=== PATIENT | male | born 1985 | race Caucasian/White ===

== ENCOUNTER 2025-04-22 16:03 | Emergency (ER) | payer BC, SELFPAY ==
[2025-04-22 16:13] VITALS: BP 188/146
[2025-04-22 16:24] LABS: % Basophils 0.9 % (0-2); % Eosinophils 1.8 % (0-6); % Immature Granulocytes 0.3 % (0-0.5); % Lymphocytes 24.3 % (20.5-51.1); % Monocytes 9.7 % (1.7-9.3); Absolute Basophils 0.1 10^3/uL (0-0.2); Absolute Eosinophils 0.1 10^3/uL (0-0.7); Absolute Lymphocytes 1.7 10^3/uL (1.2-3.4); Absolute Monocytes 0.7 10^3/uL (0.1-0.6); Absolute Neutrophils 4.4 10^3/uL (1.4-6.5); Hematocrit 47.7 % (39.0-52.0); Hemoglobin 17.5 g/dL (13.0-18.0); Mean Corp Hgb Conc. 36.7 g/dL (33.0-37.0); Mean Corpuscular Hgb 32.9 pg (27.0-31.0); Mean Corpuscular Volume 89.7 fL (80.0-94.0); Mean Platelet Volume 8.9 fL (7.4-10.4); Nucleated Red Blood Cells % 0 % (-); Platelet Count 235 10^3/uL (130-400); Red Blood Cell Count 5.32 10^6/uL (4.70-6.10); Red Cell Dist. Width 11.2 % (11.5-14.5)
[2025-04-22 16:53] LABS: ALT (SGPT) 119 U/L (0-50); AST (SGOT) 37 U/L (17-59); Albumin 5.3 g/dl (3.5-5.0); Alkaline Phosphatase 64 U/L (38-126); Blood Urea Nitrogen 15 mg/dl (9-20); Calcium 10.7 mg/dl (8.4-10.2); Carbon Dioxide 28 mmol/L (22-30); Chloride 104 mmol/L (98-107); Glucose 111 mg/dl (70-99); Lipase 144 U/L (23-300); Sodium 143 mmol/L (135-145); Total Bilirubin 1.4 mg/dl (0.2-1.3); Total Protein 8.6 g/dl (6.3-8.2); eGFR > 60.00
--- NOTE | 2025-04-22 19:02 | ED.GENMED ---
History of Present Illness
General
Chief Complaint: Abdominal Symptoms
Source: patient
Exam Limitations: none
Time Seen by Provider: 04/22/25 18:08
Nursing documentation reviewed up to this point in time: agreed with
History of Present Illness
History of Present Illness:
The patient is a 40-year-old male presenting with intermittent abdominal pain, primarily experienced in the center of the abdomen/right upper abdomen. Over the last 7 to 10 days, the patient describes worsening symptoms including upper abdominal
discomfort and occasional nausea. The pain sometimes feels sharp, and he experiences bloating. He has noticed similar symptoms intermittently over the past year. He does feel like the symptoms are exacerbated by eating.
Prior to the most recent exacerbation, the patient consumed six alcoholic drinks with spicy food, which led to worsened symptoms, including dry heaving and a flushed sensation. He reports frequent bloating and states he has felt flushed without any
fever. Additionally, he experiences looser stools during flare-ups but no nausea or diarrhea was reported.
The patient mentions a history of blood pressure issues as he gets very nervous when his blood pressure is taken.
The patient reports no chest pain or respiratory symptoms. He denies any surgery or significant medical history.
He does report neglecting his health over the past two years after moving back from [place]. He plans to reduce his alcohol consumption as he is currently drinking about 30 drinks per week. His last drink was last .
Review of Systems
Review of Systems
Allergies reviewed?: Yes
All Other Systems: ROS reviewed and negative except as documented in HPI and ROS
Phy Exam
Physical Exam
Physical Exam:
Vitals: Hypertensive, otherwise vital signs stable. Afebrile
General: Patient is in no apparent distress.
Skin: Warm and dry, no rashes or lesions
Head: Normocephalic, atraumatic
Eyes: Sclera nonicteric.
Throat: Protecting airway
Neck: Normal ROM, no cervical spine tenderness, no meningismus
Cardiac: Regular rate and rhythm, no murmurs.
Pulm: Normal respiratory effort, no wheezes, rales, rhonchi heard on exam
.
Abdomen: Abdomen soft. No reproducible abdominal tenderness. Negative Mata sign. No tenderness McBurney's point
Extremities: No evidence of cyanosis or edema
Neuro: AAOx3. Grossly intact. No tremors.
Psychiatric: Normal affect.
Course
Orders/Labs/Results
Orders:
Orders
04/22/25 16:17
Complete Blood Count/With Diff Urgent
Comprehensive Metabolic Panel Urgent
Lipase Urgent
04/22/25 19:01
Mag Hydrox/Al Hydrox/Simeth [Maalox] 30 ml Phenobarb/Hyoscy/Atropine/Scop [] 10 ml Viscous Lidocaine 2% [Xylocaine Viscous Cup] 10 ml PO NOW
US Abdomen Complete/Upper Urgent
Comment:
Reason For Exam: RUQ pain, nausea
04/22/25 19:02
Electrocardiogram (*1) Urgent
Reason for Study: Abdominal Pain
EKG- Treatment ONCE
04/22/25 19:16
Mag Hydrox/Al Hydrox/Simeth [Maalox] 30 ml .ROUTE .STK-MED ONE
Phenobarb/Hyoscy/Atropine/Scop [] 10 ml .ROUTE .STK-MED ONE
Viscous Lidocaine 2% [Xylocaine Viscous Cup] 15 ml .ROUTE .STK-MED ONE
04/22/25 21:24
Amlodipine [Norvasc] 5 mg PO NOW STA
Abnormal Lab Results
04/22/25
16:17
MCH 32.9 H pg
(27.0-31.0)
RDW 11.2 L %
(11.5-14.5)
Absolute Monos (auto) 0.7 H 10^3/uL
(0.1-0.6)
Monocytes % 9.7 H %
(1.7-9.3)
Glucose 111 H mg/dl
(70-99)
Calcium 10.7 H mg/dl
(8.4-10.2)
Total Bilirubin 1.4 H mg/dl
(0.2-1.3)
ALT 119 H U/L
(0-50)
Total Protein 8.6 H g/dl
(6.3-8.2)
Albumin 5.3 H g/dl
(3.5-5.0)
04/22/25 16:17
04/22/25 16:17
Vital Signs
Initial and Last Documented VS:
Initial Vital Signs
Temp Pulse Resp Pulse Ox
98.7 F 104 18 100
04/22/25 16:10 04/22/25 16:10 04/22/25 16:10 04/22/25 16:10
Last Documented Vital Signs
Temp Pulse Resp BP Pulse Ox
98.7 F 82 18 183/124 98
04/22/25 16:10 04/22/25 20:26 04/22/25 20:26 04/22/25 20:26 04/22/25 20:26
MDM/Problems Addressed
Differential Diagnosis Includes:
Not limited to: Biliary colic, acute cholecystitis, choledocholithiasis, gastritis, peptic ulcer, pancreatitis, etc.
MDM/Problems Addressed:
40 year-old male with history as documented presenting with intermittent upper abdominal pain associated with nausea, worse over the past week. No known fevers. No changes in bowel habits or urinary symptoms. Patient does report consuming a
significant amount of alcohol weekly, however, has not had a drink since last and is trying to cut black/stop. Vitals and physical exam as above.
Patient appears very well appearing and in no apparent distress with a benign abdominal exam. Labs obtained prior to my evaluation and reviewed. No leukocytosis. ALT elevated likely secondary to alcohol use. Calcium elevate to 10.7.
Differential broad. Lower suspicion for acute infectious process given patient is afebrile with benign abdominal exam and no leukocytosis. However, will obtain ultrasound for further evaluation. Will give G.I. cocktail and reassess.
Update: ultrasound with findings of fatty liver, likely secondary to alcohol use, without evidence of gallstones or acute cholecystitis. At this time � low suspicion for acute infectious process. Patient did have some improvement in symptoms
following GI cocktail.
Overall impression is likely gastritis as well as developing hepatosteatosis secondary to alcohol use. Discussed importance of alcohol cessation to prevent further hepatic damage. Recommend a G.I. follow up outpatient. Will prescribe PPI, Carafate
for suspected gastritis.
Patient has remained hypertensive in the emergency department without evidence of end-organ damage. Given significant hypertension will start patient on anti-hypertensive and advise close primary care f/u outpatient. Message sent to residency clinic
in an attempt to establish care. Very strict precaution discussed. Patient stable for discharge home.
Chronic conditions affecting care:
Alcohol abuse
Acute Exacerbation and/or Progression of Chronic Illness:
N/A
*Radiology
Radiology exam reviewed: radiology read reviewed
*Pulse Oximetry
Patient hypoxic: no
*EKG
Interpreted by ED Provider?: Yes
EKG Intrepretation Date: 04/22/25
Interpretation: abnormal
Comparison EKG: no comparison EKG present
Heart Rate: 72
Rate: normal
Rhythm: sinus
Hobbs: normal axis
QRS Pattern: left vent hypertrophy
Ischemia: no ischemia
*Adjustment Clerk Interpretation
Rate: Adjustment Clerk- N/A
*Critical Care Note
Total Time (30-74mins, 75-104mins- exclusive of procedures): Not Applicable
Patient Management
Escalation/DeEscalation of care consider admission/obs:
Admit not indicated
ED Attending Note
-
Portions of this chart may have been created with voice recognition software.� Occasional wrong word or��sound alike� substitutions may have occurred due to the inherent limitations of voice recognition software.
Discharge Plan
Departure
Patient Disposition: Home (Routine Discharge)
Date of Disposition: 04/22/25
Time of Disposition: 21:19
Patient with high blood pressure during this ER visit?: Yes
Condition: Good
Covid-19: Not Applicable
Discharge Problem:
Abdominal pain, Alcohol induced fatty liver, Hypertension
Instructions: High blood pressure - ED discharge instructions, Alcohol use disorder - ED discharge instructions, Abdominal Pain, BLOOD PRESSURE
Prescriptions:
New
amlodipine 5 mg tablet
5 mg PO DAILY Qty: 30 0RF
sucralfate [Carafate] 1 gram tablet
1 g PO QID 14 Days Qty: 56 0RF
pantoprazole 20 mg tablet,delayed release (DR/EC)
20 mg PO DAILY Qty: 30 0RF
Rx Instructions:
Take 1 tablet PO BID x 1 week, then 1 tablet PO QD
Referrals:
[facility] [Provider Group] - Follow up in 2-3 days
Henry Nicole MD [Active, Gastroenterology] - Next open appointment
NONE,* [Family Provider, Internal Medicine]
Activity Restrictions/Additional Instructions:
RETURN TO THE EMERGENCY DEPARTMENT WITH ANY FEVER, CHILLS, PERSISTENT/WORSENING UPPER ABDOMINAL PAIN, INTRACTABLE NAUSEA/VOMITING, SEVERE HEADACHE, CHEST PAIN OR SHORTNESS OF BREATH, YELLOWING OF SKIN OR EYES, OR ANY OTHER CONCERNS
-Your blood pressure was elevated while in the emergency department. You were started on a blood pressure medication which you should take once a day. You should follow-up with a primary care for further evaluation/management in the next few days.
I have sent your information over to the family medicine residency clinic.
-As discussed�it is important that you stop drinking alcohol to avoid any further damage to your liver. You should follow-up with GI for further evaluation/management.
-Your prescriptions have been sent to your pharmacy.
-It is important to stay well-hydrated and eat a balanced diet. You should follow a low-salt and a low-fat diet. It is important to get plenty of exercise.
Monitor your symptoms very closely and return to the emergency department with any acute worsening/new symptoms or any signs of infection
Interventions
Interventions:
*Risk Screen - Suicide Last Done: 04/22/25 16:10
*General Assessment Last Done: 04/22/25 16:10
*Neglect/Abuse Screening Last Done: 04/22/25 16:10
*ED- Fall Risk Assessment Last Done: 04/22/25 16:10
*ED COVID-19 Vaccine History Last Done: 04/22/25 16:10
*Nursing Disposition Last Done: 04/22/25 21:54
[facility] Assessment Last Done: 04/22/25 18:54
Discharge Date and Time
Discharge Date/Time: 04/22/25 21:55
Print Language: UPPER SORBIAN
[2025-04-22] MEDS: MAALOX 50 PO (19:37)
[2025-04-22 20:26] VITALS: BP 183/124
[2025-04-22] MEDS: NORVASC 5 MG PO (21:37)
== END 2025-04-22 21:55 | disposition home or self-care (01) ==
LOC: EMR 16:03
PROVIDERS: Emergency Medicine; EMERGENCY PHYSICIAN Emergency Medicine
DX: K70.0 Alcoholic fatty liver (principal); F10.10 Alcohol abuse, uncomplicated; I10 Essential (primary) hypertension; R10.9 Unspecified abdominal pain
CPT/HCPCS: 99285; 76700; 80053; 83690; 85025; 93005

== ENCOUNTER 2025-06-28 06:20 | Day surgery (SDC) | payer BC, SELFPAY | END 2025-06-28 13:55 | disposition home or self-care (01) | LOC: GI 06:20 | PROVIDERS: ATTENDING PHYSICIAN Internal Medicine Gastroenterology | DX: R10.10 Upper abdominal pain, unspecified (principal); K29.70 Gastritis, unspecified, without bleeding; K29.00 Acute gastritis without bleeding | CPT/HCPCS: 43239; 88305; 88342 ==